=== PATIENT | male | born 1945 | race Caucasian/White ===

== ENCOUNTER → 2016-09-09 | Outpatient (CLI) | payer MEDICARE, OTHER ==
[~2016-09-09] MED LIST: *BLDWK7; *CXR; AMO500 PO; ANDRGEL TD; ARTH650T PO; ASPI81TA85 PO; CAHNTIXC PO; CEFTIN500 PO; CHAN0.5P PO; CHLO25TA3 PO; DOXYCYC100; DOXYCYC100 PO; HCTZ25 PO; LEVO750T PO; LIPITOR20; LIPITOR20 PO; LISINOPR5 PO; LOSA50TA20 PO; PRIL40CA PO; SIMV80TA PO; TESSALO100 PO; VITA200016 PO; VITAMIN B 12 PO; ZOCOR40 PO; ZOCOR80 PO; ZYBAN150; [UNRECOGNIZED DRUG - OTHER] PR
--- NOTE | 2016-09-09 12:45 | REP ---
Lumbar spine five views: There are no comparisons. There is scoliosis convex left at the thoracolumbar junction. Vertebral body heights and alignment are normal. There is no spondylolysis or spondylolisthesis. There is osteophyte formation along the anterior margins of every lumbar vertebra compatible with multilevel moderate degenerative disc disease. The pedicles, facets and sacroiliac articulations are unremarkable. Impression: Scoliosis. Multilevel degenerative disc disease. Otherwise, negative lumbar spine. Signed by Pradeep Yip MD 09/09/2016 12:36 P
== END ==
LOC: M ADAMS 11:12
PROVIDERS: ATTEND Physician Assistant
DX: M41.86 Other forms of scoliosis, lumbar region (principal); M51.36 Other intervertebral disc degeneration, lumbar region; M54.5 Low back pain; E55.9 Vitamin D deficiency, unspecified

== ENCOUNTER → 2016-09-09 | Outpatient (REF) | payer MEDICARE, OTHER ==
[2016-09-09 18:33] LABS: FOLATE > 24.0 NG/ML; VITAMIN B12 LEVEL 1230 PG/ML
== END ==
LOC: M SFHCADAM 11:08
PROVIDERS: ATTEND Physician Assistant
DX: M54.5 Low back pain (principal); M79.642 Pain in left hand; M79.641 Pain in right hand; Z79.899 Other long term (current) drug therapy

== ENCOUNTER → 2016-12-10 | Outpatient (REF) | payer MEDICARE, OTHER ==
[2016-12-10 13:38] LABS: ALBUMIN 3.8 GM/DL (3.2-5.2); ALKALINE PHOSPHATASE 69 U/L (45-117); ALT/SGPT 23 U/L (12-78); ANION GAP 4 MEQ/L (8-16); AST/SGOT 12 U/L (15-37); BILIRUBIN,TOTAL 0.6 MG/DL (0.2-1.0); BLOOD UREA NITROGEN 23 MG/DL (7-18); CALCIUM LEVEL 9.6 MG/DL (8.8-10.2); CARBON DIOXIDE LEVEL 35 MEQ/L (21-32); CHLORIDE LEVEL 99 MEQ/L (98-107); CHOLESTEROL LEVEL 200 MG/DL (<200); CREATININE FOR GFR 0.75 MG/DL (0.70-1.30); GLOMERULAR FILTRATION RATE > 60.0 (>42); GLUCOSE, FASTING 105 MG/DL (83-110); POTASSIUM SERUM 4.5 MEQ/L (3.5-5.1); SODIUM LEVEL 138 MEQ/L (136-145); TOTAL PROTEIN 7.6 GM/DL (6.4-8.2); TRIGLYCERIDES LEVEL 226 MG/DL (<150)
== END ==
LOC: M SFHCADAM 10:14
PROVIDERS: ATTEND Family Medicine
DX: E78.2 Mixed hyperlipidemia (principal)

== ENCOUNTER → 2017-04-09 | Outpatient (CLI) | payer MEDICARE, OTHER ==
--- NOTE | 2017-04-09 16:16 | REP ---
Clinical: Right hip pain. Technique: Neutral and frog lateral views of the hip. Findings: No acute fracture or dislocation. Age-related degenerative changes are appreciated with joint space narrowing and subtle spurring. No periarticular calcifications. Impression: Age-related degenerative changes. Signed by Karlos Coburn MD 04/09/2017 04:09 P
--- NOTE | 2017-04-09 16:46 | REP ---
Left hand series: Four views: History: Osteoarthritis of the hand. Findings: Overall mineralization pattern is normal. There is arthritic joint space narrowing at the IP joint of the thumb and at the 2nd and 3rd MCP joints. There is mild osteoarthritic spurring at the IP joint of the thumb. No erosive change is seen. Impression: Arthritic joint space narrowing at the 2nd and 3rd MCP joints with some spurring. Osteoarthritis is seen at the IP joint of the thumb as well. Signed by Mt Abarca MD 04/09/2017 04:54 P
== END ==
LOC: M ADAMS 15:42
PROVIDERS: ATTEND Family Medicine
DX: M19.042 Primary osteoarthritis, left hand (principal); M16.11 Unilateral primary osteoarthritis, right hip
CPT/HCPCS: 73130; 73502; 96372; G0463; J1030

== ENCOUNTER → 2017-11-25 | Outpatient (REF) | payer MEDICARE, OTHER ==
[2017-11-25 12:35] LABS: HEMATOCRIT 47.3 % (42.0-52.0); HEMOGLOBIN 16.2 g/dl (13.5-17.5); MEAN CORPUSCULAR HEMOGLOBIN 30.7 pg (27.0-33.0); MEAN CORPUSCULAR HGB CONC 34.2 g/dl (32.0-36.5); MEAN CORPUSCULAR VOLUME 89.8 fl (80.0-96.0); PLATELET COUNT, AUTOMATED 264 10^3/uL (150-450); RED BLOOD COUNT 5.27 10^6/uL (4.30-6.10); RED CELL DISTRIBUTION WIDTH 11.9 % (11.5-14.5); WHITE BLOOD COUNT 7.2 10^3/uL (4.0-10.0)
[2017-11-25 12:59] LABS: ALBUMIN/GLOBULIN RATIO 1.03 (1.00-1.93); ALKALINE PHOSPHATASE 75 U/L (45-117); ALT/SGPT 22 U/L (12-78); ANION GAP 6 MEQ/L (8-16); AST/SGOT 17 U/L (7-37); BILIRUBIN,TOTAL 0.7 MG/DL (0.2-1.0); BLOOD UREA NITROGEN 20 MG/DL (7-18); CALCIUM LEVEL 9.5 MG/DL (8.8-10.2); CARBON DIOXIDE LEVEL 34 MEQ/L (21-32); CHLORIDE LEVEL 100 MEQ/L (98-107); CHOLESTEROL LEVEL 194 MG/DL (<200); CHOLESTEROL RISK RATIO 4.217 (<5); CREATININE FOR GFR 0.75 MG/DL (0.70-1.30); GLOMERULAR FILTRATION RATE > 60.0 (>42); GLUCOSE, FASTING 95 MG/DL (70-100); HDL CHOLESTEROL 46 MG/DL (>40); LDL CHOLESTEROL 112.8 MG/DL (<100); NON-HDL-C 148 MG/DL; POTASSIUM SERUM 3.5 MEQ/L (3.5-5.1); PSA SCREENING 1.49 NG/ML (< 4.0); SODIUM LEVEL 140 MEQ/L (136-145); TOTAL PROTEIN 7.9 GM/DL (6.4-8.2); TRIGLYCERIDES LEVEL 176 MG/DL (<150)
[2017-11-25 13:24] LABS: ESTIMATED AVERAGE GLUCOSE 128 MG/DL (60-110); HEMOGLOBIN A1c 6.1 %
== END ==
LOC: M SFHCADAM 08:35
DX: M19.042 Primary osteoarthritis, left hand (principal); J84.10 Pulmonary fibrosis, unspecified; R73.03 Prediabetes; E78.2 Mixed hyperlipidemia; Z12.5 Encounter for screening for malignant neoplasm of prostate
CPT/HCPCS: 80053

== ENCOUNTER → 2018-06-03 | Outpatient (CLI) | payer MEDICARE, OTHER | LOC: M RAD 10:03 | DX: Z12.2 Encounter for screening for malignant neoplasm of respiratory organs (principal); Z87.891 Personal history of nicotine dependence; J98.11 Atelectasis; D51.9 Vitamin B12 deficiency anemia, unspecified; E78.2 Mixed hyperlipidemia | CPT/HCPCS: G0297 ==

== ENCOUNTER → 2018-06-03 | Outpatient (REF) | payer MEDICARE, OTHER ==
[2018-06-03 13:29] LABS: HEMATOCRIT 46.9 % (42.0-52.0); HEMOGLOBIN 15.6 g/dl (13.5-17.5); MEAN CORPUSCULAR HEMOGLOBIN 30.9 pg (27.0-33.0); MEAN CORPUSCULAR HGB CONC 33.3 g/dl (32.0-36.5); MEAN CORPUSCULAR VOLUME 92.9 fl (80.0-96.0); PLATELET COUNT, AUTOMATED 258 10^3/uL (150-450); RED BLOOD COUNT 5.05 10^6/uL (4.30-6.10); RED CELL DISTRIBUTION WIDTH 12.3 % (11.5-14.5); WHITE BLOOD COUNT 7.5 10^3/uL (4.0-10.0)
[2018-06-03 13:38] LABS: ALBUMIN 3.8 GM/DL (3.2-5.2); ALBUMIN/GLOBULIN RATIO 1.09 (1.00-1.93); ALKALINE PHOSPHATASE 86 U/L (45-117); ALT/SGPT 27 U/L (12-78); ANION GAP 5 MEQ/L (8-16); AST/SGOT 19 U/L (7-37); BILIRUBIN,TOTAL 0.6 MG/DL (0.2-1.0); BLOOD UREA NITROGEN 23 MG/DL (7-18); CALCIUM LEVEL 9.7 MG/DL (8.8-10.2); CARBON DIOXIDE LEVEL 35 MEQ/L (21-32); CHLORIDE LEVEL 98 MEQ/L (98-107); CHOLESTEROL LEVEL 191 MG/DL (<200); CHOLESTEROL RISK RATIO 4.441 (<5); GLOMERULAR FILTRATION RATE > 60.0 (>42); GLUCOSE, FASTING 101 MG/DL (70-100); HDL CHOLESTEROL 43 MG/DL (>40); LDL CHOLESTEROL 106 MG/DL (<100); NON-HDL-C 148 MG/DL; POTASSIUM SERUM 3.8 MEQ/L (3.5-5.1); SODIUM LEVEL 138 MEQ/L (136-145); TOTAL PROTEIN 7.3 GM/DL (6.4-8.2); TRIGLYCERIDES LEVEL 212 MG/DL (<150)
== END ==
LOC: M SFHCADAM 08:31
DX: D51.9 Vitamin B12 deficiency anemia, unspecified (principal); E78.2 Mixed hyperlipidemia

== ENCOUNTER 2019-02-11 13:36 | Emergency (ER) | payer MEDICARE, OTHER ==
[~2019-02-11] VITALS: Ht 165.1 cm; Wt 81.8 kg
[2019-02-11] MEDS ORDERED: SPIR1CAP (13:49)
[2019-02-11 15:44] LABS: BASO % 0.3 % (0.0-1.0); EOS # 0.1 10^3/uL (0.0-0.50); EOS % 0.7 % (0.0-3.0); HEMATOCRIT 47.3 % (42.0-52.0); HEMOGLOBIN 16.1 g/dl (13.5-17.5); LYMPH # 1.7 10^3/uL (1.5-4.5); LYMPH % 13.3 % (24.0-44.0); MEAN CORPUSCULAR HEMOGLOBIN 31.6 pg (27.0-33.0); MEAN CORPUSCULAR VOLUME 92.9 fl (80.0-96.0); MONO # 0.7 10^3/uL (0.0-0.8); NEUTROPHILS # 10.4 10^3/uL (1.8-7.7); NEUTROPHILS % 80.4 % (36.0-66.0); PLATELET COUNT, AUTOMATED 262 10^3/uL (150-450); RED BLOOD COUNT 5.09 10^6/uL (4.30-6.10); WHITE BLOOD COUNT 12.9 10^3/uL (4.0-10.0)
[2019-02-11 15:54] LABS: INR 0.97; PROTHROMBIN TIME 12.6 SECONDS (11.8-14.0)
[2019-02-11 16:08] LABS: BLOOD UREA NITROGEN 24 MG/DL (7-18); CALCIUM LEVEL 9.3 MG/DL (8.8-10.2); CARBON DIOXIDE LEVEL 35 MEQ/L (21-32); CHLORIDE LEVEL 101 MEQ/L (98-107); CREATININE FOR GFR 0.81 MG/DL (0.70-1.30); GLOMERULAR FILTRATION RATE > 60.0 (>42); GLUCOSE, FASTING 111 MG/DL (70-100); POTASSIUM SERUM 3.6 MEQ/L (3.5-5.1); SODIUM LEVEL 139 MEQ/L (136-145)
[2019-02-11] MEDS ORDERED: ISOVUE-370 76% 100ML VIAL (Q9967) As Ordered ONE (16:24)
[2019-02-11] MEDS ORDERED: NS 1,000 ML IV ONE (16:30)
[2019-02-11] MEDS ORDERED: CIPR-249 PO (18:16)
[2019-02-11 18:31] VITALS: BP 179/77
--- NOTE | 2019-02-11 19:23 | REP ---
CT abdomen pelvis without and with IV contrast: CT urogram. History: Painless hematuria. CT contrast dose: 100 ml of intravenous Isovue [address] findings: Digital preliminary diet technician registered radiograph demonstrates an elevated right hemidiaphragm, a moderate levoconvex thoracolumbar scoliotic curve, and a normal bowel gas pattern. The lung bases show mild linear fibrosis and plate-like atelectasis in the right middle and lower lobes. No pleural effusion is seen. The liver is normal in size homogeneous in texture. The spleen is unremarkable. No adrenal lesion is seen on either side. There is some calcification in the medial limb of the adrenal on the right. No abnormalities noted in the gallbladder or pancreas. There is no evidence of hydronephrosis or intrarenal calculus on either side. The kidneys enhance symmetrically and are morphologically intact. No renal mass lesion is observed. Delayed scan images demonstrate no filling defect in the upper tract collecting systems on either side. The ureters describe a normal course to the urinary bladder. No bladder wall mass lesion is appreciated. No bladder calculus is seen. Prostate and seminal vesicles are unremarkable. Small and large bowel loops are unremarkable. No abdominal wall defect is seen. No bony destructive lesion is appreciated. Impression: No urinary tract mass or calculus is seen. Thoracolumbar scoliosis. Right basilar linear fibrosis versus atelectasis otherwise negative. Electronically Signed by Mt Abarca MD 02/11/2019 08:27 P
== END 2019-02-11 18:31 | disposition home or self-care (01) ==
LOC: M ED 13:36
DX: R31.0 Gross hematuria (principal); I10 Essential (primary) hypertension; J44.9 Chronic obstructive pulmonary disease, unspecified; E78.00 Pure hypercholesterolemia, unspecified; K21.9 Gastro-esophageal reflux disease without esophagitis; E29.1 Testicular hypofunction; E55.9 Vitamin D deficiency, unspecified; E53.8 Deficiency of other specified B group vitamins; Z79.899 Other long term (current) drug therapy; Z79.82 Long term (current) use of aspirin; Z88.0 Allergy status to penicillin
CPT/HCPCS: 74178; 80048; 81001; 85025; 85610; 87088; 87186; 96360; 96361; 99284; Q9967

== ENCOUNTER → 2019-02-15 | Outpatient (REF) | payer MEDICARE, OTHER ==
[~2019-02-15] MED LIST changes: +CIPR-249 PO; +SPIR1CAP
[2019-02-15 16:11] LABS: ALBUMIN 4.1 GM/DL (3.2-5.2); BILIRUBIN,DIRECT 0.2 MG/DL (0.0-0.2); BILIRUBIN,TOTAL 0.9 MG/DL (0.2-1.0); CK-MB VALUE MASS 1.8 NG/ML (<3.6); MB/CK RELATIVE INDEX 1.57 (< OR =4); TOTAL PROTEIN 8.1 GM/DL (6.4-8.2)
== END ==
LOC: M SFHCPLAZ 14:10
PROVIDERS: ATTEND Nurse Practitioner Family
DX: R10.11 Right upper quadrant pain (principal)
CPT/HCPCS: 36415; 51798; 80076; 82553; G0463

== ENCOUNTER → 2019-06-07 | Outpatient (REF) | payer MEDICARE, OTHER ==
[2019-06-07 13:59] LABS: HEMOGLOBIN A1c 6.1 %
[2019-06-07 14:04] LABS: ALT/SGPT 27 U/L (12-78); BLOOD UREA NITROGEN 28 MG/DL (7-18); CALCIUM LEVEL 9.6 MG/DL (8.8-10.2); CARBON DIOXIDE LEVEL 33 MEQ/L (21-32); CHLORIDE LEVEL 98 MEQ/L (98-107); CHOLESTEROL LEVEL 208 MG/DL (<200); CHOLESTEROL RISK RATIO 4.333 (<5); CREATININE FOR GFR 0.88 MG/DL (0.70-1.30); GLOMERULAR FILTRATION RATE > 60.0 (>42); GLUCOSE, FASTING 93 MG/DL (70-100); HDL CHOLESTEROL 48 MG/DL (>40); LDL CHOLESTEROL 122 MG/DL (<100); NON-HDL-C 160 MG/DL; POTASSIUM SERUM 4.1 MEQ/L (3.5-5.1); SODIUM LEVEL 138 MEQ/L (136-145); TOTAL PROTEIN 7.8 GM/DL (6.4-8.2); TRIGLYCERIDES LEVEL 190 MG/DL (<150)
== END ==
LOC: M SFHCADAM 08:43
PROVIDERS: ATTEND Family Medicine
DX: Z12.5 Encounter for screening for malignant neoplasm of prostate (principal); I11.9 Hypertensive heart disease without heart failure; R73.03 Prediabetes; E78.2 Mixed hyperlipidemia
CPT/HCPCS: 80053; 80061; 83036; G0103

== ENCOUNTER → 2019-06-15 | Outpatient (CLI) | payer MEDICARE, OTHER ==
--- NOTE | 2019-06-15 15:46 | REP ---
Noncontrast chest CT: Low-dose screening exam. History: Personal history of nicotine dependence. Comparison CT studies are from June 03, 2018, September 20, 2014, and October 24, 2009. Findings: There is chronic atelectasis with some air bronchograms and bronchiectasis in the right middle lobe and right lower lobe unchanged from the June 2018 and September 2014 prior studies. This is a little more pronounced than that seen on the 2009 prior exam. There is no visible pulmonary mass or nodule. There is no evidence of pleural effusion. No endobronchial lesion is appreciated. Exam is otherwise unremarkable. Impression: Stable lung-RADS 1 category findings. Chronic atelectasis right middle lobe and right lower lobe. Repeat screening exam recommended 1 year. Electronically Signed by Mt Abarca MD 06/15/2019 05:22 P
== END ==
LOC: M RAD 11:06
PROVIDERS: ATTEND Physician Assistant
DX: Z12.2 Encounter for screening for malignant neoplasm of respiratory organs (principal); Z87.891 Personal history of nicotine dependence; J98.11 Atelectasis
CPT/HCPCS: G0297; G0463

== ENCOUNTER → 2020-04-10 | Outpatient (CLI) | payer MEDICARE, OTHER ==
--- NOTE | 2020-05-01 11:46 | REP ---
LUMBOSACRAL SPINE SERIES CLINICAL: Lower back pain. COMPARISON: 09/09/2016. TECHNIQUE: AP, lateral, bilateral oblique, and coned down views of the lumbosacral spine. FINDINGS: Age-related osteopenia and advanced multilevel degenerative changes including chronic levoconvex scoliosis again noted. Findings appear relatively similar to 2017. No obvious acute fracture/compression injury or subluxation, although mild chronic compression deformity at T11 is suggested possibly related to the chronic scoliosis. IMPRESSION: * Osteopenia and advanced multilevel degenerative changes including chronic levoconvex scoliosis. * Findings are relatively similar to 2017. If the patient remains symptomatic, consider MRI for further investigation. MTDD
== END ==
LOC: M ADAMS 14:06
PROVIDERS: ATTEND Family Medicine
DX: M85.88 Other specified disorders of bone density and structure, other site (principal); M51.36 Other intervertebral disc degeneration, lumbar region

== ENCOUNTER → 2020-05-29 | Outpatient (REF) | payer MEDICARE, OTHER ==
[2020-05-29 14:11] LABS: HEMATOCRIT 49.3 % (42.0-52.0); HEMOGLOBIN 16.2 g/dl (13.5-17.5); MEAN CORPUSCULAR HEMOGLOBIN 31.3 pg (27.0-33.0); MEAN CORPUSCULAR HGB CONC 32.9 g/dl (32.0-36.5); MEAN CORPUSCULAR VOLUME 95.4 fl (80.0-96.0); PLATELET COUNT, AUTOMATED 281 10^3/uL (150-450); RED BLOOD COUNT 5.17 10^6/uL (4.30-6.10); WHITE BLOOD COUNT 8.6 10^3/uL (4.0-10.0)
[2020-05-29 14:33] LABS: HEMOGLOBIN A1c 5.9 %
[2020-05-29 14:56] LABS: ALBUMIN 3.7 GM/DL (3.2-5.2); ALT/SGPT 22 U/L (12-78); BILIRUBIN,TOTAL 0.7 MG/DL (0.2-1.0); BLOOD UREA NITROGEN 20 MG/DL (7-18); CALCIUM LEVEL 9.8 MG/DL (8.8-10.2); CARBON DIOXIDE LEVEL 34 MEQ/L (21-32); CHLORIDE LEVEL 98 MEQ/L (98-107); CHOLESTEROL LEVEL 204 MG/DL (<200); CHOLESTEROL RISK RATIO 3.457 (<5); CREATININE FOR GFR 0.83 MG/DL (0.70-1.30); GLOMERULAR FILTRATION RATE > 60.0 (>42); GLUCOSE, FASTING 100 MG/DL (70-100); HDL CHOLESTEROL 59 MG/DL (>40); LDL CHOLESTEROL 122 MG/DL (<100); NON-HDL-C 145 MG/DL; POTASSIUM SERUM 3.9 MEQ/L (3.5-5.1); SODIUM LEVEL 137 MEQ/L (136-145); TOTAL PROTEIN 7.7 GM/DL (6.4-8.2); TRIGLYCERIDES LEVEL 113 MG/DL (<150)
== END ==
LOC: M PLALAB 10:41
PROVIDERS: ATTEND Family Medicine
DX: J84.10 Pulmonary fibrosis, unspecified (principal); E78.2 Mixed hyperlipidemia; R73.03 Prediabetes; Z12.5 Encounter for screening for malignant neoplasm of prostate
CPT/HCPCS: 36415; 80053; 80061; 83036; 85027; G0103

== ENCOUNTER → 2020-07-09 | Outpatient (CLI) | payer MEDICARE, OTHER ==
--- NOTE | 2020-07-09 17:03 | REP ---
INDICATION: NICOTINE DEPNED. COMPARISON: Chest CTs dated 10/24/2009, 09/20/2014, 06/03/2018 and 10/13/2018. TECHNIQUE: The study is performed without IV contrast. Images are presented and lung windowing only. FINDINGS: There is chronic elevation of the right hemidiaphragm, unchanged. here is chronic compression atelectasis of the right middle lobe and right lower lobe from the elevated right hemidiaphragm, unchanged. There are no lung nodules or masses. There are no infiltrates or pleural effusions. There is thoracic scoliosis convex right, unchanged. IMPRESSION: There are no lung masses or nodules. There are no infiltrates or pleural effusions. Chronic elevation of right hemidiaphragm with chronic compression atelectasis of the right middle lobe and right lower lobe. Chronic thoracic scoliosis. Category [address] low-dose lung screening CT of the chest. Probability of malignancy his less than 1%. Depending on risk factors consider annual follow-up low-dose lung screening chest CT. <Electronically signed by Pradeep Yip > 07/09/20 [id number]
== END ==
LOC: M RAD 13:00
PROVIDERS: ATTEND Physician Assistant
DX: Z12.2 Encounter for screening for malignant neoplasm of respiratory organs (principal); Z87.891 Personal history of nicotine dependence

== ENCOUNTER → 2020-08-07 | Outpatient (CLI) | payer SELFPAY | LOC: M LABSMTC 10:13 | PROVIDERS: ATTEND Pediatrics | DX: Z20.822 Contact with and (suspected) exposure to COVID-19 (principal) ==

== ENCOUNTER → 2021-06-17 | Outpatient (REF) | payer MEDICARE, OTHER ==
[2021-06-17 13:31] LABS: HEMATOCRIT 46.6 % (42.0-52.0); HEMOGLOBIN 15.4 g/dl (13.5-17.5); PLATELET COUNT, AUTOMATED 276 10^3/uL (150-450); RED BLOOD COUNT 4.96 10^6/uL (4.30-6.10); WHITE BLOOD COUNT 7.9 10^3/uL (4.0-10.0)
[2021-06-17 13:51] LABS: HEMOGLOBIN A1c 5.7 %
[2021-06-17 14:16] LABS: ALBUMIN 3.7 GM/DL (3.2-5.2); ALT/SGPT 25 U/L (12-78); BILIRUBIN,TOTAL 0.4 MG/DL (0.2-1.0); BLOOD UREA NITROGEN 21 MG/DL (7-18); CALCIUM LEVEL 10.3 MG/DL (8.8-10.2); CARBON DIOXIDE LEVEL 30 MEQ/L (21-32); CHLORIDE LEVEL 102 MEQ/L (98-107); CHOLESTEROL LEVEL 203 MG/DL (<200); CHOLESTEROL RISK RATIO 4.613 (<5); CREATININE FOR GFR 0.76 MG/DL (0.70-1.30); GLOMERULAR FILTRATION RATE > 60.0 (>42); GLUCOSE, FASTING 110 MG/DL (70-100); HDL CHOLESTEROL 44 MG/DL (>40); LDL CHOLESTEROL 115 MG/DL (<100); NON-HDL-C 159 MG/DL; POTASSIUM SERUM 4.1 MEQ/L (3.5-5.1); SODIUM LEVEL 140 MEQ/L (136-145); TOTAL PROTEIN 7.8 GM/DL (6.4-8.2); TRIGLYCERIDES LEVEL 219 MG/DL (<150); VITAMIN B12 LEVEL 1406 PG/ML (247-911)
== END ==
LOC: M SFHCADAM 09:08
PROVIDERS: ATTEND Family Medicine
DX: D51.9 Vitamin B12 deficiency anemia, unspecified (principal); I11.9 Hypertensive heart disease without heart failure; R73.03 Prediabetes; E78.2 Mixed hyperlipidemia; Z12.5 Encounter for screening for malignant neoplasm of prostate
CPT/HCPCS: 80053; 80061; 82607; 83036; 85027; G0103

== ENCOUNTER → 2021-09-06 | Outpatient (CLI) | payer MEDICARE, OTHER | LOC: M RAD 08:47 | PROVIDERS: ATTEND Internal Medicine Pulmonary Disease | DX: Z12.2 Encounter for screening for malignant neoplasm of respiratory organs (principal); Z87.891 Personal history of nicotine dependence; I70.0 Atherosclerosis of aorta; I25.10 Atherosclerotic heart disease of native coronary artery without angina pectoris ==

== ENCOUNTER 2021-12-16 13:01 | Observation (INO) | payer MEDICARE, OTHER ==
[~2021-12-16] VITALS: Ht 165.1 cm; Wt 77.5 kg
[~2021-12-16 13:01] MED LIST changes: -SPIR1CAP; +SPIR1CAP INH
[2021-12-16 13:49] LABS: BASO % 0.4 % (0.0-1.0); EOS # 0.2 10^3/uL (0.0-0.5); EOS % 2.2 % (0.0-3.0); LYMPH # 0.9 10^3/uL (1.5-5.0); MEAN CORPUSCULAR HEMOGLOBIN 31.9 pg (27.0-33.0); MEAN CORPUSCULAR VOLUME 93.8 fl (80.0-96.0); MONO % 10.4 % (2.0-8.0); NEUTROPHILS # 7.7 10^3/uL (1.5-8.5); NEUTROPHILS % 77.7 % (36.0-66.0); PLATELET COUNT, AUTOMATED 193 10^3/uL (150-450); RED BLOOD COUNT 5.01 10^6/uL (4.30-6.10); WHITE BLOOD COUNT 9.9 10^3/uL (4.0-10.0)
[2021-12-16 14:13] LABS: CK-MB VALUE MASS < 1.0 NG/ML (<3.6); CPK CREATINE PHOSPHOKINASE 58 U/L (39-308); MB/CK RELATIVE INDEX 1.72 (< OR =4)
[2021-12-16 14:22] LABS: ALBUMIN 3.9 GM/DL (3.2-5.2); ALT/SGPT 22 U/L (12-78); BILIRUBIN,DIRECT 0.2 MG/DL (0.0-0.2); BILIRUBIN,TOTAL 0.9 MG/DL (0.2-1.0); BLOOD UREA NITROGEN 15 MG/DL (7-18); CALCIUM LEVEL 9.9 MG/DL (8.8-10.2); CARBON DIOXIDE LEVEL 33 MEQ/L (21-32); CHLORIDE LEVEL 100 MEQ/L (98-107); CREATININE FOR GFR 0.78 MG/DL (0.70-1.30); GLOMERULAR FILTRATION RATE > 60.0 (>42); GLUCOSE, FASTING 111 MG/DL (70-100); POTASSIUM SERUM 2.9 MEQ/L (3.5-5.1); SODIUM LEVEL 140 MEQ/L (136-145); THYROID STIMULATING HORMONE 0.597 uIU/ML (0.358-3.740); THYROXINE (T4) 8.6 UG/DL (4.5-12.0); TOTAL PROTEIN 7.9 GM/DL (6.4-8.2)
[2021-12-16] MEDS ORDERED: ATOR40TA75 PO (14:54)
[2021-12-16] MEDS: KCL 10MEQ/100ML SWI (KRUN) 10 MEQ in IV 1 EA IV ONE ×2 (16:25→16:40)
[2021-12-16] MEDS ORDERED: POTASSIUM CHLORIDE 10MEQ SR TABLET PO ONE ×2 (16:25→17:55)
[2021-12-16] MEDS ORDERED: ACETAMINOPHEN TAB 650MG DOSE (2X325MG) PO PRN (16:45)
[2021-12-16] MEDS ORDERED: MOM 30ML SUSPENSION UDC PO PRN (16:45)
[2021-12-16] MEDS ORDERED: ALBUTEROL 90 MCG/ACT 8GM HFA INHALER INH PRN (17:55)
[2021-12-16 18:28] VITALS: BP 176/81
[2021-12-16] MEDS ORDERED: OMEP-173 PO (18:42)
[2021-12-16] MEDS ORDERED: ASPI81TA26 PO (18:42)
[2021-12-16] MEDS ORDERED: VITA100093 PO (18:42)
[2021-12-16] MEDS ORDERED: LOSA50TA28 PO (18:42)
[2021-12-16] MEDS ORDERED: B-12100010 PO (18:42)
[2021-12-16] MEDS ORDERED: CHLO25TA PO (18:42)
[2021-12-16] MEDS ORDERED: HOME MED LIST COMPLETE! XX SCH (18:45)
[2021-12-16] MEDS ORDERED: REMDESIVIR 200 MG in NS 250 ML IV ONE (20:00)
[2021-12-16] MEDS ORDERED: ASPIRIN 81 MG CHEW TABLET PO SCH (21:00)
[2021-12-16 21:18] VITALS: BP 132/60
[2021-12-16] MEDS ORDERED: SODIUM CHLORIDE 0.9% INJ 10 ML SYR IV ONE (22:00)
[2021-12-17 06:00] VITALS: BP 113/56
[2021-12-17 07:19] LABS: HEMATOCRIT 44.5 % (42.0-52.0); HEMOGLOBIN 14.9 g/dl (13.5-17.5); MEAN CORPUSCULAR HEMOGLOBIN 31.2 pg (27.0-33.0); MEAN CORPUSCULAR HGB CONC 33.5 g/dl (32.0-36.5); MEAN CORPUSCULAR VOLUME 93.3 fl (80.0-96.0); PLATELET COUNT, AUTOMATED 181 10^3/uL (150-450); RED BLOOD COUNT 4.77 10^6/uL (4.30-6.10); WHITE BLOOD COUNT 6.2 10^3/uL (4.0-10.0)
[2021-12-17 07:49] LABS: ALBUMIN 3.1 GM/DL (3.2-5.2); ALT/SGPT 24 U/L (12-78); BILIRUBIN,DIRECT 0.1 MG/DL (0.0-0.2); BILIRUBIN,TOTAL 0.6 MG/DL (0.2-1.0); BLOOD UREA NITROGEN 18 MG/DL (7-18); CALCIUM LEVEL 9.7 MG/DL (8.8-10.2); CARBON DIOXIDE LEVEL 34 MEQ/L (21-32); CHLORIDE LEVEL 103 MEQ/L (98-107); GLOMERULAR FILTRATION RATE > 60.0 (>42); GLUCOSE, FASTING 96 MG/DL (70-100); MAGNESIUM LEVEL 2.3 MG/DL (1.8-2.4); POTASSIUM SERUM 3.4 MEQ/L (3.5-5.1); SODIUM LEVEL 141 MEQ/L (136-145); TOTAL PROTEIN 7.8 GM/DL (6.4-8.2)
[2021-12-17] MEDS ORDERED: TIOTROPIUM INHALER/CAPSULE (SPIRIVA) INH SCH (08:00)
[2021-12-17] MEDS ORDERED: ENOXAPARIN 40MG/0.4ML SYRINGE (J1650 PER 10MG) SC SCH (09:00)
[2021-12-17] MEDS ORDERED: VITAMIN D 1,000 INTERNATIONAL UNITS TABLET PO SCH (09:00)
[2021-12-17] MEDS ORDERED: OMEPRAZOLE 20MG CAP PO SCH (09:00)
[2021-12-17] MEDS ORDERED: POTASSIUM CHLORIDE 10MEQ SR TABLET PO ONE (10:30)
[2021-12-17] MEDS ORDERED: REMDESIVIR 100 MG in NS 250 ML IV SCH (20:00)
[2021-12-17] MEDS ORDERED: SODIUM CHLORIDE 0.9% INJ 10 ML SYR IV SCH (21:00)
== END 2021-12-17 12:58 | disposition home or self-care (01) ==
LOC: M ED 13:01 → M ED INP 13:02 → ENRESERV 16:54 → M 4MAIN 18:23
PROVIDERS: ADMIT Internal Medicine; ATTEND Internal Medicine
DX: U07.1 COVID-19 (principal); E87.8 Other disorders of electrolyte and fluid balance, not elsewhere classified; E87.6 Hypokalemia; I10 Essential (primary) hypertension; E78.5 Hyperlipidemia, unspecified; R73.03 Prediabetes; I34.1 Nonrheumatic mitral (valve) prolapse; D51.9 Vitamin B12 deficiency anemia, unspecified; M10.9 Gout, unspecified; K57.92 Diverticulitis of intestine, part unspecified, without perforation or abscess without bleeding; E29.1 Testicular hypofunction; Z88.0 Allergy status to penicillin; Z87.891 Personal history of nicotine dependence; Z79.82 Long term (current) use of aspirin; Z79.899 Other long term (current) drug therapy; Z79.01 Long term (current) use of anticoagulants
CPT/HCPCS: 36415; 71046; 80048; 80076; 82550; 82553; 83605; 83735; 84436; 84443; 84484; 85025; 85027; 87040; 87486; 87581; 87633; 87798; 93005; 94640; 96365; 96372; 97161; 97530; 99285; G0378; J0248; J1650; M0222

== ENCOUNTER 2021-12-17 13:00 | Outpatient (CLI) | payer MEDICARE, OTHER ==
[~2021-12-17] VITALS: Ht 165.1 cm; Wt 77.5 kg
[~2021-12-17 13:00] MED LIST changes: +ACETAMINOPHEN TAB 650MG DOSE (2X325MG) PO PRN; +ALBUTEROL 90 MCG/ACT 8GM HFA INHALER INH PRN; +ALBUTEROL SULFATE 2.5 MG/0.5 ML INH NEB SOLN INH PRN; +ASPI81TA26 PO; +ATOR40TA75 PO; +B-12100010 PO; +CHLO25TA PO; +EPINEPHrine INJ 1 MG/ML 1ML AMP IM PRN; +LOSA50TA28 PO; +OMEP-173 PO; +VITA100093 PO; +diphenhydrAMINE 50MG/ML VIAL (J1200) IV PRN; +methylPREDNISolone 125MG 2ML VIAL IV PRN
[2021-12-17 13:20] VITALS: BP 151/67
[2021-12-17] MEDS ORDERED: BEBTELOVIMAB 175MG 2ML VIAL (EUA) IV ONE (13:30)
[2021-12-17] MEDS ORDERED: NS 1,000 ML IV SCH (13:30)
[2021-12-17 14:25] VITALS: BP 158/75
== END 2021-12-17 15:30 ==
LOC: M OPCLI4 13:00 → M 4MAIN 13:00 → M OPCLI4 15:30
PROVIDERS: ATTEND Internal Medicine
DX: U07.1 COVID-19 (principal); Z88.0 Allergy status to penicillin

== ENCOUNTER → 2022-06-30 | Outpatient (REF) | payer MEDICARE, OTHER ==
[~2022-06-30] MED LIST changes: -ACETAMINOPHEN TAB 650MG DOSE (2X325MG) PO PRN; -ALBUTEROL 90 MCG/ACT 8GM HFA INHALER INH PRN; -ALBUTEROL SULFATE 2.5 MG/0.5 ML INH NEB SOLN INH PRN; -EPINEPHrine INJ 1 MG/ML 1ML AMP IM PRN; -diphenhydrAMINE 50MG/ML VIAL (J1200) IV PRN; -methylPREDNISolone 125MG 2ML VIAL IV PRN
[2022-06-30 13:07] LABS: HEMATOCRIT 47.3 % (42.0-52.0); HEMOGLOBIN 15.5 g/dl (13.5-17.5); MEAN CORPUSCULAR HGB CONC 32.8 g/dl (32.0-36.5); MEAN CORPUSCULAR VOLUME 94.6 fl (80.0-96.0); PLATELET COUNT, AUTOMATED 242 10^3/uL (150-450); WHITE BLOOD COUNT 7.7 10^3/uL (4.0-10.0)
[2022-06-30 14:07] LABS: CHLORIDE LEVEL 99 MMOL/L (98-107); POTASSIUM SERUM 4.1 MMOL/L (3.5-5.1); SODIUM LEVEL 141 MMOL/L (136-145)
[2022-06-30 14:08] LABS: ALBUMIN 3.9 G/DL (3.2-5.2); CARBON DIOXIDE LEVEL 32 MMOL/L (20-31)
[2022-06-30 14:13] LABS: BLOOD UREA NITROGEN 17 MG/DL (9-23); CALCIUM LEVEL 9.9 MG/DL (8.3-10.6); GLUCOSE, FASTING 107 MG/DL (74-106); TRIGLYCERIDES LEVEL 134 MG/DL (<150)
[2022-06-30 14:14] LABS: ALKALINE PHOSPHATASE 79 U/L (46-116); THYROID STIMULATING HORMONE 1.428 uIU/ML (0.55-4.78)
[2022-06-30 14:15] LABS: ALT/SGPT 20 U/L (7.0-40); AST/SGOT 19 U/L (<34); BILIRUBIN,TOTAL 0.8 MG/DL (0.3-1.2); CHOLESTEROL LEVEL 170 MG/DL (<200); CHOLESTEROL RISK RATIO 3.76 (<5); CREATININE FOR GFR 0.66 MG/DL (0.70-1.30); GLOMERULAR FILTRATION RATE > 60.0 (>42); HDL CHOLESTEROL 45.2 MG/DL (>40); NON-HDL-C 125 MG/DL
[2022-06-30 14:16] LABS: FREE T4 1.01 NG/DL (0.89-1.76); TOTAL PROTEIN 7.3 G/DL (5.7-8.2)
[2022-06-30 14:17] LABS: URIC ACID 4.8 MG/DL (3.7-9.2)
[2022-06-30 19:43] LABS: HEMOGLOBIN A1c 5.8 % (4.0-6.0)
== END ==
LOC: M SFHCADAM 09:01
PROVIDERS: ATTEND Family Medicine
DX: R73.03 Prediabetes (principal); E78.2 Mixed hyperlipidemia; I11.9 Hypertensive heart disease without heart failure; J84.10 Pulmonary fibrosis, unspecified; D51.9 Vitamin B12 deficiency anemia, unspecified; R53.83 Other fatigue; M10.9 Gout, unspecified; Z12.5 Encounter for screening for malignant neoplasm of prostate
CPT/HCPCS: 80053; 80061; 83036; 84439; 84443; 84550; 85027; G0103

== ENCOUNTER → 2022-12-11 | Outpatient (CLI) | payer MEDICARE, OTHER | LOC: M RAD 15:55 | PROVIDERS: ATTEND Physician Assistant | DX: S29.9XXA Unspecified injury of thorax, initial encounter (principal); J98.11 Atelectasis; J98.6 Disorders of diaphragm; I70.0 Atherosclerosis of aorta; M41.25 Other idiopathic scoliosis, thoracolumbar region; X58.XXXA Exposure to other specified factors, initial encounter; Y92.9 Unspecified place or not applicable; Y93.9 Activity, unspecified; Y99.9 Unspecified external cause status ==

== ENCOUNTER → 2023-06-29 | Outpatient (REF) | payer MEDICARE, OTHER ==
[2023-06-29 13:46] LABS: HEMATOCRIT 48.2 % (42.0-52.0); HEMOGLOBIN 16.1 g/dl (13.5-17.5); MEAN CORPUSCULAR HEMOGLOBIN 31.3 pg (27.0-33.0); MEAN CORPUSCULAR HGB CONC 33.4 g/dl (32.0-36.5); MEAN CORPUSCULAR VOLUME 93.8 fl (80.0-96.0); PLATELET COUNT, AUTOMATED 258 10^3/uL (150-450); RED BLOOD COUNT 5.14 10^6/uL (4.30-6.10); WHITE BLOOD COUNT 7.9 10^3/uL (4.0-10.0)
[2023-06-29 14:14] LABS: THYROID STIMULATING HORMONE 2.133 uIU/ML (0.55-4.78)
[2023-06-29 14:15] LABS: ALBUMIN 3.9 G/DL (3.2-5.2); ALKALINE PHOSPHATASE 84 U/L (46-116); ALT/SGPT 20 U/L (7.0-40); AST/SGOT 18 U/L (<34); BLOOD UREA NITROGEN 23 MG/DL (9-23); CALCIUM LEVEL 9.7 MG/DL (8.3-10.6); CARBON DIOXIDE LEVEL 32 MMOL/L (20-31); CHLORIDE LEVEL 100 MMOL/L (98-107); CHOLESTEROL LEVEL 202 MG/DL (<200); CHOLESTEROL RISK RATIO 4.98 (<5); CREATININE FOR GFR 0.67 MG/DL (0.70-1.30); FOLATE > 24.00 NG/ML (>5.4); FREE T4 0.95 NG/DL (0.89-1.76); GLOMERULAR FILTRATION RATE > 60.0 (>42); GLUCOSE, FASTING 106 MG/DL (74-106); HDL CHOLESTEROL 40.5 MG/DL (>40); LDL CHOLESTEROL 122.9 MG/DL (<100); NON-HDL-C 161.5 MG/DL; POTASSIUM SERUM 3.7 MMOL/L (3.5-5.1); SODIUM LEVEL 142 MMOL/L (136-145); TOTAL PROTEIN 7.4 G/DL (5.7-8.2); TRIGLYCERIDES LEVEL 193 MG/DL (<150); VITAMIN B12 LEVEL 600 PG/ML (211-911)
[2023-06-29 14:17] LABS: HEMOGLOBIN A1c 5.9 % (4.0-6.0)
== END ==
LOC: M SFHCADAM 08:47
PROVIDERS: ATTEND Family Medicine
DX: M79.2 Neuralgia and neuritis, unspecified (principal); J84.10 Pulmonary fibrosis, unspecified; D51.9 Vitamin B12 deficiency anemia, unspecified; I11.9 Hypertensive heart disease without heart failure; R73.03 Prediabetes; E78.2 Mixed hyperlipidemia; Z12.5 Encounter for screening for malignant neoplasm of prostate
CPT/HCPCS: 80053; 80061; 82607; 82746; 83036; 84439; 84443; 85027; G0103

== ENCOUNTER → 2024-06-21 | Outpatient (REF) | payer MEDICARE, OTHER ==
[2024-06-21 13:32] LABS: HEMATOCRIT 47.2 % (42.0-52.0); HEMOGLOBIN 15.5 g/dl (13.5-17.5); MEAN CORPUSCULAR HEMOGLOBIN 31.3 pg (27.0-33.0); MEAN CORPUSCULAR HGB CONC 32.8 g/dl (32.0-36.5); MEAN CORPUSCULAR VOLUME 95.2 fl (80.0-96.0); PLATELET COUNT, AUTOMATED 259 10^3/uL (150-450); RED BLOOD COUNT 4.96 10^6/uL (4.30-6.10); WHITE BLOOD COUNT 8.7 10^3/uL (4.0-10.0)
[2024-06-21 13:37] LABS: VITAMIN B12 LEVEL 673 PG/ML (211-911)
[2024-06-21 13:41] LABS: ALBUMIN 3.6 G/DL (3.2-5.2); ALKALINE PHOSPHATASE 76 U/L (40-129); ALT/SGPT 21 U/L (7.0-40); AST/SGOT 16 U/L (<34); BLOOD UREA NITROGEN 20 MG/DL (9-23); CALCIUM LEVEL 10.4 MG/DL (8.3-10.6); CARBON DIOXIDE LEVEL 33 MMOL/L (20-31); CHLORIDE LEVEL 102 MMOL/L (98-107); CHOLESTEROL LEVEL 178 MG/DL (<200); CHOLESTEROL RISK RATIO 3.35 (<5); CREATININE FOR GFR 0.76 MG/DL (0.70-1.30); GLOMERULAR FILTRATION RATE > 60.0 (>42); GLUCOSE, FASTING 103 MG/DL (74-106); HDL CHOLESTEROL 53.1 MG/DL (>40); LDL CHOLESTEROL 101.5 MG/DL (<100); NON-HDL-C 124.9 MG/DL; POTASSIUM SERUM 4.1 MMOL/L (3.5-5.1); SODIUM LEVEL 141 MMOL/L (136-145); TOTAL PROTEIN 7.4 G/DL (5.7-8.2); TRIGLYCERIDES LEVEL 117 MG/DL (<150)
[2024-06-21 14:01] LABS: HEMOGLOBIN A1c 6.1 % (4.0-6.0)
== END ==
LOC: M SFHCADAM 09:58
PROVIDERS: ATTEND Family Medicine
DX: D51.9 Vitamin B12 deficiency anemia, unspecified (principal); E78.2 Mixed hyperlipidemia; R73.03 Prediabetes

== ENCOUNTER → 2024-11-15 | Outpatient (REF) | payer MEDICARE, OTHER | LOC: M LAB REF 13:03 | PROVIDERS: ATTEND Internal Medicine Pulmonary Disease | DX: J06.9 Acute upper respiratory infection, unspecified (principal) ==

== ENCOUNTER → 2025-04-12 | Outpatient (CLI) | payer MEDICARE, OTHER | LOC: M PLAIMG 12:19 | PROVIDERS: ATTEND Family Medicine | DX: I35.0 Nonrheumatic aortic (valve) stenosis (principal); R01.1 Cardiac murmur, unspecified ==

== ENCOUNTER → 2025-05-10 | Outpatient (CLI) | payer MEDICARE, OTHER | LOC: M WUC 13:44 | PROVIDERS: ATTEND Nurse Practitioner Family | DX: R05.9 Cough, unspecified (principal) ==

== ENCOUNTER → 2025-07-11 | Outpatient (REF) | payer MEDICARE, OTHER ==
[2025-07-11 14:34] LABS: PLATELET COUNT, AUTOMATED 273 10^3/uL (150-450)
[2025-07-11 14:54] LABS: ESTIMATED AVERAGE GLUCOSE 128.0 MG/DL (60-110)
[2025-07-11 15:05] LABS: ALT/SGPT 19 U/L (7.0-40); AST/SGOT 17 U/L (<34); CALCIUM LEVEL 9.8 MG/DL (8.3-10.6); CARBON DIOXIDE LEVEL 36 MMOL/L (20-31); CHLORIDE LEVEL 98 MMOL/L (98-107); CHOLESTEROL LEVEL 170 MG/DL (<200); CHOLESTEROL RISK RATIO 3.11 (<5); CREATININE FOR GFR 0.73 MG/DL (0.70-1.30); GLOMERULAR FILTRATION RATE > 90.0 (>42); LDL CHOLESTEROL 92.4 MG/DL (<100); NON-HDL-C 115.4 MG/DL; POTASSIUM SERUM 4.1 MMOL/L (3.5-5.1); SODIUM LEVEL 139 MMOL/L (136-145); TRIGLYCERIDES LEVEL 115 MG/DL (<150)
[2025-07-11 15:10] LABS: VITAMIN B12 LEVEL 730 PG/ML (211-911)
== END ==
LOC: M SFHCADAM 09:32
PROVIDERS: ATTEND Family Medicine
DX: J84.10 Pulmonary fibrosis, unspecified (principal); I11.9 Hypertensive heart disease without heart failure; D51.9 Vitamin B12 deficiency anemia, unspecified; R73.03 Prediabetes; E78.2 Mixed hyperlipidemia

== ENCOUNTER 2025-07-23 18:56 | Inpatient (IN) | payer MEDICARE, OTHER ==
[~2025-07-23] VITALS: Ht 160 cm; Wt 73.8 kg
[2025-07-23] MEDS: ALBUTEROL SULFATE 2.5 MG/0.5 ML INH CONCENTRATE NEB SOLN NEB ONE (19:10)
[2025-07-23] MEDS: IPRATROPIUM 0.5 MG/ALBUTEROL 2.5 MG INH SOL UD 3 ML NEB ONE (19:10)
[2025-07-23 19:25] LABS: BASO # 0.0 10^3/uL (0.0-0.2); BASO % 0.2 % (0.0-1.0); EOS # 0.0 10^3/uL (0.0-0.5); EOS % 0.0 % (0.0-3.0); LYMPH # 1.0 10^3/uL (1.5-5.0); LYMPH % 5.7 % (24.0-44.0); MONO # 0.9 10^3/uL (0.0-0.8); MONO % 5.2 % (2.0-8.0); NEUTROPHILS # 15.6 10^3/uL (1.5-8.5); NEUTROPHILS % 88.4 % (36.0-66.0); PLATELET COUNT, AUTOMATED 244 10^3/uL (150-450)
[2025-07-23 19:53] LABS: CALCIUM LEVEL 10.1 MG/DL (8.3-10.6); CARBON DIOXIDE LEVEL 33 MMOL/L (20-31); CHLORIDE LEVEL 94 MMOL/L (98-107); CREATININE FOR GFR 0.69 MG/DL (0.70-1.30); GLOMERULAR FILTRATION RATE > 90.0 (>42); POTASSIUM SERUM 3.8 MMOL/L (3.5-5.1); SODIUM LEVEL 137 MMOL/L (136-145)
[2025-07-23] MEDS ORDERED: ISOVUE-370 76% 100 ML VIAL As Ordered ONE (20:05)
[2025-07-23] MEDS: IPRATROPIUM 0.5 MG/ALBUTEROL 2.5 MG INH SOL UD 3 ML NEB PRN (20:14)
[2025-07-23 20:29] LABS: ABG BASE EXCESS 5.4 (-2.0-2.0); ABG HCO3 30.2 MMOL/L (22.0-26.0); ABG O2 SATURATION 97.7 % (95.0-99.0); ABG PARTIAL PRESSURE CO2 44.3 mmHg (35.0-45.0); ABG PARTIAL PRESSURE O2 98.6 mmHg (75.0-100.0); ABG STANDARD HCO3 29.4 MMOL/L. (22.0-26.0); ABG TOTAL CO2 31.5 MMOL/L (23.0-31.0); ABG pH (ARTERIAL) 7.451 UNITS (7.350-7.450)
[2025-07-23] MEDS: ONDANSETRON 4MG/2ML VIAL IV ONE (20:32)
[2025-07-23 21:22] LABS: ALT/SGPT 23 U/L (7.0-40); AST/SGOT 31 U/L (<34)
[2025-07-23] MEDS: cefTRIAXone SOD 2 GM in DEXTROSE 5% (D5W) ADV/MINI-BAG 50 ML IV ONE (23:40)
[2025-07-24] MEDS ORDERED: MOM 30 ML SUSPENSION UDC PO PRN (00:05)
[2025-07-24] MEDS ORDERED: ACETAMINOPHEN 500 MG TAB PO PRN (00:05)
[2025-07-24] MEDS ORDERED: ALBUTEROL SULFATE 2.5 MG/0.5 ML INH CONCENTRATE NEB SOLN NEB PRN (00:10)
[2025-07-24] MEDS ORDERED: ONDANSETRON 4MG/2ML VIAL IV PRN (00:15)
[2025-07-24 01:29] VITALS: BP 117/56; TEMP 98.7; O2SAT 92
[2025-07-24] MEDS: AZITHROMYCIN 250 MG TABLET PO ONE (01:47)
[2025-07-24] MEDS: IPRATROPIUM 0.5 MG/ALBUTEROL 2.5 MG INH SOL UD 3 ML NEB SCH (01:59)
[2025-07-24 06:23] LABS: PLATELET COUNT, AUTOMATED 253 10^3/uL (150-450)
[2025-07-24 06:43] LABS: CALCIUM LEVEL 9.9 MG/DL (8.3-10.6); CARBON DIOXIDE LEVEL 32 MMOL/L (20-31); CHLORIDE LEVEL 95 MMOL/L (98-107); CREATININE FOR GFR 0.77 MG/DL (0.70-1.30); GLOMERULAR FILTRATION RATE > 90.0 (>42); POTASSIUM SERUM 3.7 MMOL/L (3.5-5.1); SODIUM LEVEL 136 MMOL/L (136-145)
[2025-07-24 07:24] VITALS: BP 117/61; TEMP 98.2; O2SAT 94
[2025-07-24] MEDS: predniSONE 20 MG TAB PO SCH (08:05)
[2025-07-24 09:21] LABS: PLATELET COUNT, AUTOMATED 249 10^3/uL (150-450)
[2025-07-24 09:47] LABS: ALT/SGPT 22 U/L (7.0-40); AST/SGOT 29 U/L (<34); CALCIUM LEVEL 9.6 MG/DL (8.3-10.6); CARBON DIOXIDE LEVEL 31 MMOL/L (20-31); CHLORIDE LEVEL 94 MMOL/L (98-107); CREATININE FOR GFR 0.73 MG/DL (0.70-1.30); GLOMERULAR FILTRATION RATE > 90.0 (>42); POTASSIUM SERUM 3.7 MMOL/L (3.5-5.1); SODIUM LEVEL 136 MMOL/L (136-145)
[2025-07-24] MEDS ORDERED: GABA-1490 PO (11:31)
[2025-07-24] MEDS ORDERED: PERF3DRO OU (11:31)
[2025-07-24] MEDS ORDERED: D-20TAB PO (11:31)
[2025-07-24] MEDS ORDERED: ADVA230A INH (11:31)
[2025-07-24] MEDS ORDERED: SYST1SOL OU (11:31)
[2025-07-24] MEDS ORDERED: VENTAER INH (11:31)
[2025-07-24] MEDS ORDERED: HOME MED LIST COMPLETE! XX SCH (11:35)
[2025-07-24 12:00] VITALS: BP 112/58; TEMP 99.1; O2SAT 94
[2025-07-24] MEDS: ENOXAPARIN 40 MG/0.4 ML SYRINGE (J1650 PER 10MG) SC SCH (12:33)
[2025-07-24 19:42] VITALS: BP 133/60; TEMP 98.7; O2SAT 90
[2025-07-24] MEDS: AZITHROMYCIN 250 MG TABLET PO SCH (20:33)
[2025-07-24] MEDS: cefTRIAXone SOD 2 GM in DEXTROSE 5% (D5W) ADV/MINI-BAG 50 ML IV SCH (20:33)
[2025-07-24] MEDS ORDERED: cefTRIAXone SOD 1 GM in DEXTROSE 5% (D5W) ADV/MINI-BAG 50 ML IV SCH (21:00)
[2025-07-24 22:02] VITALS: O2SAT 94
[2025-07-25 03:17] VITALS: BP 135/63; TEMP 98.1; O2SAT 95
[2025-07-25 06:24] VITALS: O2SAT 94
[2025-07-25 06:40] LABS: PLATELET COUNT, AUTOMATED 242 10^3/uL (150-450)
[2025-07-25 07:05] LABS: CALCIUM LEVEL 9.7 MG/DL (8.3-10.6); CARBON DIOXIDE LEVEL 36 MMOL/L (20-31); CHLORIDE LEVEL 94 MMOL/L (98-107); CREATININE FOR GFR 0.63 MG/DL (0.70-1.30); GLOMERULAR FILTRATION RATE > 90.0 (>42); MAGNESIUM LEVEL 2.2 MG/DL (1.8-2.4); POTASSIUM SERUM 3.9 MMOL/L (3.5-5.1); SODIUM LEVEL 137 MMOL/L (136-145)
[2025-07-25 07:36] VITALS: O2SAT 95
[2025-07-25] MEDS ORDERED: AZIT-12 PO (10:24)
[2025-07-25] MEDS ORDERED: PRED10TA2 PO (10:24)
[2025-07-25] MEDS ORDERED: CEFD1CAP9 PO (10:24)
== END 2025-07-25 12:24 | disposition home health service (06) | DRG 871 ==
LOC: EDBD 18:56 → M ED 18:56 → M ED INP 07-24 00:05 → M MSPAV 07-24 01:18
PROVIDERS: ADMIT Student in an Organized Health Care Education/Training Program; ATTEND Internal Medicine
DX: A41.9 Sepsis, unspecified organism (principal); J96.01 Acute respiratory failure with hypoxia; J18.9 Pneumonia, unspecified organism; J44.1 Chronic obstructive pulmonary disease with (acute) exacerbation; J44.0 Chronic obstructive pulmonary disease with (acute) lower respiratory infection; Z66 Do not resuscitate; Z87.891 Personal history of nicotine dependence; E53.8 Deficiency of other specified B group vitamins; I10 Essential (primary) hypertension; G62.9 Polyneuropathy, unspecified; E78.5 Hyperlipidemia, unspecified; I34.1 Nonrheumatic mitral (valve) prolapse; M19.90 Unspecified osteoarthritis, unspecified site; K27.9 Peptic ulcer, site unspecified, unspecified as acute or chronic, without hemorrhage or perforation; Z79.82 Long term (current) use of aspirin; Z79.2 Long term (current) use of antibiotics; Z79.52 Long term (current) use of systemic steroids; Z79.899 Other long term (current) drug therapy; Z88.2 Allergy status to sulfonamides

== ENCOUNTER → 2025-07-31 | Outpatient (CLI) | payer MEDICARE, OTHER ==
[~2025-07-31] MED LIST changes: +ADVA230A INH; +AZIT-12 PO; +CEFD1CAP9 PO; +D-20TAB PO; +GABA-1490 PO; +PERF3DRO OU; +PRED10TA2 PO; +SYST1SOL OU; +VENTAER INH
== END ==
LOC: M ADAMS 10:43
DX: J18.9 Pneumonia, unspecified organism (principal)

== ENCOUNTER → 2025-07-31 | Outpatient (REF) | payer MEDICARE, OTHER ==
[2025-07-31 14:05] LABS: ALT/SGPT 33 U/L (7.0-40); AST/SGOT 16 U/L (<34); CALCIUM LEVEL 10.1 MG/DL (8.3-10.6); CARBON DIOXIDE LEVEL 37 MMOL/L (20-31); CHLORIDE LEVEL 94 MMOL/L (98-107); CREATININE FOR GFR 0.73 MG/DL (0.70-1.30); GLOMERULAR FILTRATION RATE > 90.0 (>42); POTASSIUM SERUM 3.5 MMOL/L (3.5-5.1); SODIUM LEVEL 138 MMOL/L (136-145)
[2025-07-31 14:09] LABS: BASO # 0.1 10^3/uL (0.0-0.2); BASO % 0.2 % (0.0-1.0); EOS # 0.0 10^3/uL (0.0-0.5); EOS % 0.0 % (0.0-3.0); LYMPH # 0.9 10^3/uL (1.5-5.0); LYMPH % 4.2 % (24.0-44.0); MONO # 1.6 10^3/uL (0.0-0.8); MONO % 7.4 % (2.0-8.0); NEUTROPHILS # 19.0 10^3/uL (1.5-8.5); NEUTROPHILS % 86.8 % (36.0-66.0); PLATELET COUNT, AUTOMATED 341 10^3/uL (150-450)
== END ==
LOC: M SFHCADAM 10:36
DX: J18.9 Pneumonia, unspecified organism (principal)